=== PATIENT | female | born 1980 | race Caucasian/White ===

== ENCOUNTER → 2016-07-08 | Outpatient (CLI) | payer MEDICAID ==
--- NOTE | 2016-07-09 08:31 | MM ---
Reason for exam: screening (asymptomatic). Baseline mammogram. History: Patient is nulliparous. Family history of breast cancer in aunt at age 64. Physical Findings: Nurse Summary: 1cm nodule in the left breast at 8 o'clock (nruse dw). MG 3D Screening Mammo W/Cad Bilateral CC and MLO view(s) were taken. The breast tissue is heterogeneously dense. This may lower the sensitivity of mammography. There is no discrete abnormality including area of concern. These results were verbally communicated with the patient and result sheet given to the patient on 07/08/16. ASSESSMENT: Negative, BI-RAD 1 RECOMMENDATION: Routine screening mammogram of both breasts at age 40. Manage on a clinical basis with regard to palpable.
== END | disposition home or self-care (01) ==
LOC: RADMAMWWP 12:59
PROVIDERS: ATTEND Obstetrics & Gynecology
DX: Z12.31 Encounter for screening mammogram for malignant neoplasm of breast (principal)
CPT/HCPCS: 77063; G0202

== ENCOUNTER → 2017-03-31 | Outpatient (CLI) | payer MEDICAID ==
--- NOTE | 2017-03-31 14:36 | XR ---
EXAMINATION TYPE: XR cervical spine limited DATE OF EXAM: 03/31/2017 TECHNIQUE: Frontal, lateral, and open mouth view of the cervical spine are obtained. HISTORY: M54.2 cervicalgia neck pain for one year per patient. COMPARISON: None FINDINGS: The cervical spine is visualized in its entirety from C1 thru the top of T1 level, it is s atisfactory in alignment without evidence of acute fracture or dislocation. The pre-vertebral soft t issue appears within normal limits. The C1-C2 articulation is within normal limits on the open mouth view. Vertebral body heights and disc space heights are maintained. No significant spurring is seen. Overlying soft tissue is unremarkable. IMPRESSION: Unremarkable study.
== END | disposition home or self-care (01) ==
LOC: RADXRMAIN 14:15
PROVIDERS: ATTEND Physician Assistant
DX: M54.2 Cervicalgia (principal)
CPT/HCPCS: 72040

== ENCOUNTER → 2018-09-02 | Outpatient (CLI) | payer OTHER ==
--- NOTE | 2018-09-02 14:13 | XR ---
EXAMINATION TYPE: XR ankle complete RT, XR foot complete RT DATE OF EXAM: 09/02/2018 CLINICAL HISTORY: Lateral right foot pain and ankle pain after fall TECHNIQUE: Frontal, lateral and oblique images of the right ankle and foot are obtained. COMPARISON: None. FINDINGS: There is no acute fracture/dislocation evident in the right ankle. The ankle mortise appe ars within normal limits. The overlying soft tissue appears unremarkable.There is no acute fracture or dislocation evident in the right foot. The joint spaces in the right foot are preserved. Overlyi ng soft tissue is unremarkable. IMPRESSION: There is no acute fracture or dislocation in the right ankle or foot.
== END | disposition home or self-care (01) ==
LOC: RADXRMAIN 13:49
PROVIDERS: ATTEND Emergency Medicine
DX: S93.401A Sprain of unspecified ligament of right ankle, initial encounter (principal); S93.601A Unspecified sprain of right foot, initial encounter

== ENCOUNTER → 2020-10-16 | Outpatient (CLI) | payer MEDICAID ==
[2020-10-16 15:48] LABS: HCT 38.1 % (37.2-46.3); HGB 12.4 g/dL (12.0-15.0); MCH 30.9 pg (27.0-32.0); MCHC 32.5 g/dL (32.0-37.0); Mean Platelet Volume 10.9 fL (9.5-12.2); Platelet Count 336 X 10*3/uL (140-440); RBC 4.01 X 10*6/uL (4.10-5.20); RDW 13.2 % (11.5-14.5); WBC 6.62 X 10*3/uL (4.50-10.00)
[2020-10-17 00:26] LABS: African American GFR (CKD) 126.5 (60.0-200.0); Albumin 4.4 g/dL (3.80-4.90); Albumin/Globulin Ratio 1.47 (1.60-3.17); Anion Gap 7.9 mmol/L (4.00-12.00); BUN/Creat Ratio 24.29 Ratio (12.00-20.00); Calcium 9.4 mg/dL (8.7-10.3); Carbon Dioxide 25.1 mmol/L (21.6-31.8); Chol/HDL Ratio 3.25; LDL Cholesterol,Calculated 114.6 mg/dL (0.0-131.0); Non-African American GFR(CKD) 109.1 (60.0-200.0); Potassium 4.7 mmol/L (3.5-5.5); Total Bilirubin 0.5 mg/dL (0.3-1.2); Total Protein 7.4 g/dL (6.2-8.2); VLDL Calculation 11.4 mg/dL (5.00-40.00)
== END | disposition home or self-care (01) ==
LOC: LABWHC1 08:17
PROVIDERS: ATTEND Physician Assistant
DX: Z00.00 Encounter for general adult medical examination without abnormal findings (principal); I47.1 Supraventricular tachycardia
CPT/HCPCS: 36415; 80053; 80061; 84443; 85027

== ENCOUNTER → 2022-09-10 | Outpatient (CLI) | payer MEDICAID ==
[2022-09-10 19:23] LABS: HCT 38.3 % (37.2-46.3); HGB 12.4 g/dL (12.0-15.0); MCH 30.8 pg (27.0-32.0); MCHC 32.4 g/dL (32.0-37.0); NRBC Per 100 WBC 0 /100 WBCS (0.0-0.0); Platelet Count 400 X 10*3/uL (140-440); RBC 4.03 X 10*6/uL (4.10-5.20); RDW 13.5 % (11.5-14.5); WBC 7.35 X 10*3/uL (4.50-10.00)
[2022-09-10 20:55] LABS: ALT 19 U/L (8-44); AST 22 U/L (13-35); African American GFR (CKD) 124.7 (60.0-200.0); Albumin 4.5 g/dL (3.8-4.9); Alkaline Phosphatase 31 U/L (41-126); BUN/Creat Ratio 24.14 Ratio (12.00-20.00); Blood Urea Nitrogen 16.9 mg/dL (9.0-27.0); Calcium 9.8 mg/dL (8.7-10.3); Carbon Dioxide 27.7 mmol/L (20.0-27.5); Chloride 97 mmol/L (96-109); Glucose 94 mg/dL (70-110); Non-African American GFR(CKD) 107.6 (60.0-200.0); Potassium 4.7 mmol/L (3.5-5.5); Sodium 131 mmol/L (135-145); Total Protein 7.5 g/dL (6.2-8.2); VLDL Calculation 13.92 mg/dL (5.00-40.00)
== END | disposition home or self-care (01) ==
LOC: LABWHC1 08:29
PROVIDERS: ATTEND Physician Assistant
DX: Z00.00 Encounter for general adult medical examination without abnormal findings (principal); R53.83 Other fatigue
CPT/HCPCS: 36415; 80053; 80061; 82306; 82607; 83036; 84439; 84443; 85027

== ENCOUNTER → 2023-12-15 | Outpatient (CLI) | payer MEDICAID ==
--- NOTE | 2023-12-15 19:52 | CA ---
Stress Echo Report Yana Hurd Age: 42 Gender: F : 1980 Exam Date: 12/15/2023 09:08 Exam Location: [facility] Ht (in): 64 Wt (lb): 120 Ordering Physician: Marcus Church MD ([id number]) Referring Physician: EVA, Coding Auditor: SABRINA Technologist Procedure CPT: Indication: I47.10 SVT W/SD DEPRESSION ICD-9 Codes: Rhythm: Patient History: Cardiac Medications: METOPROLOL, LORADIDINE Medications in past 24 hours: Contrast: Definity Stress Results Protocol: Iban Total dose(mL): 2 Exercise Duration (min:sec): 12:[address] Depression (mm): Angina Score: Wilson Score: METS: 12.3 Resting HR: 82 Resting BP: 117 / 73 Peak HR: 195 Peak BP: 173 / 88 Max Predicted HR: 178 110 % Max Predicted HR Target HR: 151 Double Product: [id number] Stress Summary: BP Response: Reason for Termination: Reached target heart rate or work-load Cardiac Symptoms: NO SYMPTOMS ECG Analysis Resting ECG: Stress ECG: Arrhythmia: Echo Analysis Resting Echo: Peak Echo Analysis: MEASUREMENTS (Male/Female) Normal Values CONCLUSIONS Diagnosis: SVT associated with [address] depression, symptomatic Baseline heart rate 62 beats a minute, baseline blood pressure 117/73 mmHg, baseline 12 EKG shows sinus rhythm normal [place] narrow QRS normal ST segments No delta waves normal QT interval Patient exercised on a Iban protocol for 12 minutes, achieving a peak heart rate of 195 beats a minute. Initial brisk heart rate response to exercise Normal blood pressure response No ECG evidence for ischemia Definity contrast was used to delineate the LV endocardial borders Baseline 2D echo images showed normal LV systolic function At peak exercise, there was excellent augmentation of overall LV contractility with excellent myocardial thickening without development of any wall motion abnormalities At recovery, regional and global LV systolic function remain normal No exercise-induced arrhythmias Impression: Normal exercise stress echo, excellent exercise capacity Dr. Marcus Church MD (Electronically Signed) Final Date: 15 December 2023 19:51
== END | disposition home or self-care (01) ==
LOC: RADNMMAIN 08:07
PROVIDERS: ATTEND Internal Medicine Clinical Cardiac Electrophysiology
DX: I47.10 Supraventricular tachycardia, unspecified (principal)
CPT/HCPCS: 93351

== ENCOUNTER → 2024-09-13 | Outpatient (CLI) | payer MEDICAID ==
--- NOTE | 2024-09-13 11:59 | MM ---
Reason for Exam: Screening (asymptomatic). Last mammogram was performed 8 year(s) and 2 month(s) ago. Patient History: Menarche at age 13. Patient has no children. Premenopausal. Maternal aunt had breast cancer, age 64. Risk Values: Julia 5 year model risk: 0.8%. NCI Lifetime model risk: 10.8%. Prior Study Comparison: 07/08/2016 Bilateral Screening Mammogram, [facility]. Tissue Density: The breasts are heterogeneously dense, which may obscure small masses. Findings: Analyzed By CAD. There is no suspicious group of microcalcifications or new suspicious mass in either breast. Overall Assessment: Negative, BI-RAD 1 Management: Screening Mammogram of both breasts in 1 year. Some advise annual breast ultrasound surveillance in patients with background dense tissue. Patient should continue monthly self-breast exams. A clinical breast exam by your physician is recommended on an annual basis. This exam should not preclude additional follow-up of suspicious palpable abnormalities. Note on Julia scores and lifetime risk: 1. A Julia score greater than 3% is considered moderate risk. If this is the case, consider specialist referral to assess eligibility for a risk reducing agent. 2. If overall lifetime risk for the development of breast cancer is 20% or higher, the patient may qualify for future screening with alternating mammogram and breast MRI. [facility], , 09/13/2024 11:55 AM. Electronically signed and approved by: Carlos High M.D.
[2024-09-13 15:42] LABS: ALT 19 U/L (8-44); AST 24 U/L (13-35); Albumin 4.5 g/dL (3.8-4.9); Albumin/Globulin Ratio 1.25 Ratio (1.60-3.17); Alkaline Phosphatase 38 U/L (41-126); BUN/Creat Ratio 22.71 Ratio (12.00-20.00); Blood Urea Nitrogen 15.9 mg/dL (9.0-27.0); Calcium 9.9 mg/dL (8.7-10.3); Carbon Dioxide 24.8 mmol/L (21.6-31.8); Chloride 100 mmol/L (96-109); Chol/HDL Ratio 3.24 Ratio; Globulin 3.6 g/dL (1.6-3.3); Glucose 99 mg/dL (70-110); HCT 41.4 % (37.2-46.3); HGB 13.4 g/dL (12.0-15.0); LDL Cholesterol,Calculated 134.8 mg/dL (0.0-131.0); MCH 30.7 pg (27.0-32.0); MCHC 32.4 g/dL (32.0-37.0); MCV 94.7 FL (80.0-97.0); NRBC Per 100 WBC 0 X 10*3/uL (0.00-0.01); Platelet Count 406 X 10*3/uL (140-440); Potassium 4.5 mmol/L (3.5-5.5); RBC 4.37 X 10*6/uL (4.10-5.20); RDW 13.6 % (11.5-14.5); Sodium 137 mmol/L (135-145); Total Bilirubin 0.5 mg/dL (0.3-1.2); Total Protein 8.1 g/dL (6.2-8.2); VLDL Calculation 14.58 mg/dL (5.00-40.00); WBC 7.84 X 10*3/uL (4.50-10.00)
== END | disposition home or self-care (01) ==
LOC: RADMAMWWP 10:21
PROVIDERS: ATTEND Obstetrics & Gynecology
DX: Z12.31 Encounter for screening mammogram for malignant neoplasm of breast (principal); Z00.00 Encounter for general adult medical examination without abnormal findings; Z13.220 Encounter for screening for lipoid disorders; R73.01 Impaired fasting glucose; R53.83 Other fatigue; R92.333 Mammographic heterogeneous density, bilateral breasts; Z80.3 Family history of malignant neoplasm of breast
CPT/HCPCS: 77063; 77067; 80053; 80061; 83036; 84443; 85027